=== PATIENT | female | born 1945 | race Caucasian/White ===

== ENCOUNTER 2024-11-06 14:09 | Outpatient (AMB) | payer OTHER, SELFPAY ==
--- OUTSIDE RECORDS SUMMARY | 2017-05-31 20:00 | XMS_ITS | Continuity of Care Document ---
Author Organization [facility] Address [address] [place] [address] Phone Care Team Providers Care Procurement Representative Name Role Phone Lluvia Fields MD Unavailable Unavailable Procedures Procedure Date Void Encounter [facility] Compl 8 Advance Directives Directive Yes / No Effective Date File Name No Information Encounters Encounter Description Practice Location Reason(s) For Visit Diagnoses Date Provider Providers Copied on Encounter [facility], [address], [place], [place], [id number], tel:[phone] [facility] No Information 8 Donnie Teixeira. [address], [place], [place], [id number] , [place]. tel:[phone] Referring Provider: Lluvia Reynoso, [address], [place], [address] . tel:[phone] [facility], [address], [place], [place], [id number], tel:[phone] [facility] No Information 8 Donnie Teixeira. [address], [place], [place], [id number] , [place]. [phone] Referring Provider: Kieran Laguerre. Family History Family Member Type Diagnosis Age At Onset No Information Payers Payer name Insurance type Covered constitution party ID Authoriza tion(s) Medicare [facility] [employer] [id number] Social History Type Description Quantity Date [...]
--- NOTE | 2024-11-06 14:38 | MHC.OFFVIS ---
Intake Visit Reasons: ENP-Dizziness and giddiness Allergies povidone-iodine (From Betadine) Allergy (Unknown, Verified 10/30/24 14:01) Unknown prazosin Allergy (Unknown, Verified 10/30/24 14:01) Dizziness Sulfa (Sulfonamide Antibiotics) Allergy (Unknown, Verified 10/30/24 14:01) Unknown HPI Comments Details: The patient is a 79-year-old female presenting with difficulties in speech and concerns of a cerebrovascular event. Initially noted in April, she experienced symptoms mimicking but distinct from vertigo, characterized by a unique descending and ascending sensation of the environment around her and accompanied by significant speech disruption. This led to concern for a potential cerebrovascular incident, especially following MRI and carotid ultrasound findings revealing a blockage and possible stroke indications. Her symptoms have persisted primarily as episodic speech disturbances, where she struggles to find words and experiences pauses in her communication. Despite previous vertiginous feelings not recurring, the patient expresses ongoing concern over her cognitive processing speed and fluency. Evaluations in August led to hospitalization after imaging suggested changes indicative of an acute event. Differential diagnosis considers degenerative brain changes or prior cerebrovascular injury, necessitating further neurological oversight. [facility] Medical History (Updated 11/06/24 @ 15:21 by Washington Lema MD) Giddiness Dizziness Family History (Updated 10/30/24 @ 14:26 by Lawrence Marti CMA) Mother Alzheimer disease Father Rheumatic fever Review of Systems Const Details: - Neurological: Reports episodes of word-finding difficulty and cognitive slowing. Denies recurrent vertigo. - Cardiovascular: Denies chest pain or palpitations. - Psychiatric: Reports anxiety during episodes of speech disturbance. Assessment & Plan Assessment & Plan (1) Benign positional vertigo: Code(s): H81.10 - Benign paroxysmal vertigo, unspecified ear Category: Medical Qualifiers: Laterality: unspecified laterality Qualified Code(s): H81.10 - Benign paroxysmal vertigo, unspecified ear (2) Aphasia: Code(s): R47.01 - Aphasia Category: Medical Plan Impression recommendations: 79 years old woman with subacute onset of difficulty speaking with underlying or previous history of vertigo. Difficulty speaking probably not related to her vertigo and was probably cause by a new process and brain, degenerative or vascular. Unfortunately her brain MRI was not here. I had a dionisio conversation with her and her daughter stating that I needed to review her brain MRI to figure out exact cause of her problem. We made another appointment and they would bring the MRI CD for review. Differential diagnosis was brought but mostly I was concerned about a degenerative or vascular process. Coding Level of Care Code New Pt Level 4 (00038) Diagnoses Benign paroxysmal positional vertigo, unspecified laterality H81.10 Laterality: unspecified laterality Aphasia R47.01
--- OUTSIDE RECORDS SUMMARY | 2024-11-06 16:34 | XMS_ITS | Encounter Summary ---
Author Organization [facility] Address [address] [place] [address] Phone Care Team Providers Care Doughnut Maker Name Role Phone Zev Suarez Primary Care Provider + [phone] Reason for Referral * - New Request Specialty Diagnoses / Procedures Referred By Contac t Referred To Contact Radiology Diagnoses Dizziness and giddiness Procedures US Carotid Duplex Complete (Bilateral) Zev Suarez PA [address] [place] [address] Phone: tel: fax: mailto:[email or web address] Referral ID Status Reason Start Date Expiration Date V isits Requested Visits Authorized [id number] New Request 08/29/2024 1 1 Encounter Details Date Type Department Care Team (Latest Contact Info) Description 08/29/2024 Transcribe Orders Virtual Department [address] [place] [address] Zev Suarez PA [address] [place] [address] [email or web address] Dizziness and giddiness (Primary Dx) Social History Tobacco Use Types Packs/Day Years Used Date Smoking Tobacco: Former Cigarettes Q uit: 1970 Smokeless Tobacco: Never Alcohol Use Standard Drinks/Week Comments Yes 0 (1 standard drink = 0.6 oz pure alcohol) 2 drinks per years on [facility] Education Answer Date Recorded Are you interested in more education? Not on aylin e 07/01/2022 Are you concerned about learning? Not on file 07/01/2022 No 07/01/2022 No 07/01/2022 Digital Access Answer Date Recorded No 07/30/2022 No 07/30/2022 No 07/30/2022 Reliable internet access at home? Not on file 07/30/2022 Device with a working camera? Not on file Intimate Partner Violence Answer Date R ecorded Are you denied basic needs s uch as food, clothing, or medical care? No 04/21/2022 In the past 12 months have y ou been in a relationship with a person who hurts, threatens, or tries to control you? No 04/21/2022 Are you denied basic needs s uch as food, clothing, or medical care? No 04/21/2022 In the past 12 months have y ou been in a relationship with a person who hurts, threatens, or tries to control you? No 04/21/2022 Comments Unknown Sex and Gender Information Value Date Recorded Sex Assigned at Not on file Legal Sex Female 10:37 PM EDT Gender Identity Not on file Sexual Orientation Not on file documented as of this encounter Plan of Treatment Scheduled Orders Name Type Priority Associated Diagnoses Orde r Schedule US Carotid Duplex Complete (Bilateral) Vascular Routine Dizziness and giddiness Expected: 08/29/2024, Expires: 08/29/2025 documented as of this encounter Visit Diagnoses Diagnosis Dizziness and giddiness- Primary documented in this encounter Care Teams Doughnut Maker Relationship Specialty Start Date End Date Zev Suarez PA [address] [place] [phone] [email or web address] PCP - General Physician School Business Manager 04/08/22 documented as of this encounter Additional Source Comments The information contained in this document represents components of the legal health record. It is not the complete legal health record.[facility]
--- OUTSIDE RECORDS SUMMARY | 2024-11-06 16:34 | XMS_ITS | Clinical Summary ---
Author Organization [facility] Address [address] [place] [address] Phone Care Team Providers Care Supervising Chef Name Role Phone Zev Suarez Primary Care Provider [phone] Allergies Active Allergy Reactions Criticality Noted Date Comments Povidone-Iodine 04/14/2022 Meperidine 04/14/2022 Medications gabapentin (NEURONTIN) 100 MG capsule Take 100 mg by mouth 2 (two) times a day. Active docusate (COLACE) 100 mg tablet Take 100 mg by mouth daily as needed for constipatio n. Active sertraline (ZOLOFT) 25 MG tablet Take 25 mg by mouth daily. Active diphenoxylate-at ropine (LOMOTIL) 2.5-0.025 mg per tablet Take 1 tablet by mouth 4 (four) times a day as needed for diarrhea. Active Encounters Date Type Department Care Team Description 08/29/2024 Transcribe Orders Virtual Department [address] [place] [address] Zev Suarez PA Dizziness and giddiness (Primary Dx) from Last 3 Months Social History Tobacco Use Types Packs/Day Years Used Date Smoking Tobacco: Former Cigarettes Q uit: 1970 Smokeless Tobacco: Never Tobacco Cessation:Counseling Given: Not Answered Alcohol Use Standard Drinks/Week Comments Yes 0 (1 standard drink = 0.6 oz pure alcohol) 2 drinks per years on [facility] Education Answer Date Recorded Are you interested [...] on file Sexual Orientation Not on file Last Filed Vital Signs Vital Sign Reading Time Taken Comments Blood Pressure 133/71 04/21/2022 3:30 PM EST Pulse 66 04/21/2022 3:30 PM EST Temperature 35.9 C (96.6 F) 04/21/2022 1:35 PM EST Respiratory Rate 12 04/21/2022 3:30 PM EST Oxygen Saturation 96% 04/21/2022 3:30 PM EST Inhaled Oxygen Concentration - - Weight 58.1 kg (128 lb) 04/14/2022 11:31 AM EST Height 167.6 cm (5' 6 ) 04/14/2022 11:31 AM EST Body Mass Index 20.66 04/14/2022 11:31 AM EST Plan of Treatment Health Maintenance Due Date Last Done Comments LIPID PANEL 1946 DEPRESSION SCREENING 1958 SMOKING Hx and SMOKELESS TOBACCO SCREENING 07/17/1959 HEPATITIS C SCREENING 1964 ZOSTER VACCINES (1 of 2) 1996 OSTEOPOROSIS SCREENING INITIAL (ONE-TIME) 07/17/2011 RSV VACCINE (1 - 1-dose 75+ series) 2021 INFLUENZA VACCINE (#1) 2024 2, 03/01/2021, 01/02/2020, Additional history exists COVID-19 VACCINE ( season) 2024 11/12/2021, 12/16/2020, 06/12/2020, Additional history exists Adult Td,Tdap Booster 10/14/2031 10/13/2021, 011 PNEUMOCOCCAL VACCINES (50+ years) Completed 03/20/2017, 03/11/2016 HEPATITIS A VACCINES Aged Out No long er eligible based on patient's age to complete this topic HIB VACCINES Aged Out No longer eligi ble based on patient's age to complete this topic MENINGOCOCCAL VACCINES (ACWY) Aged Out No longer eligible based on patient's age to complete this topic MENINGOCOCCAL VACCINES (B) Aged Out N o longer eligible based on patient's age to complete this topic Medical Devices Not on file Insurance MEDICARE REPLACEMENT MEDICARE REPLACEMENT MEDICARE REPLACEMENT Care Teams Supervising Chef Relationship Specialty Start Date End Date Zev Suarez PA [address] [place] [phone] [email or web address] PCP - General Physician Car Varnisher 04/08/22 Additional Source Comments The information contained in this document represents components of the legal health record. It is not the complete legal health record.[facility]
--- OUTSIDE RECORDS SUMMARY | 2024-11-06 16:34 | XMS_ITS | Encounter Summary ---
Author Organization [facility] Address [address] [place] [address] Phone Care Team Providers Care Stripper And Taper Name Role Phone Zev Suraez Primary Care Provider + [phone] Encounter Details Date Type Department Care Team (Late Contact Info) Description 04/21/2022 Procedure Pass OR Admitting Dept - Virtual Department [address] [place] [address] Social History Tobacco Use Types Packs/Day Years Used Date Smoking Tobacco: Former Cigarettes Q uit: 1970 Smokeless Tobacco: Never Alcohol Use Standard Drinks/Week Comments Yes 0 (1 standard drink = 0.6 oz pure alcohol) 2 drinks per years on [facility] Intimate Partner Violence Answer Date R ecorded Are you denied basic needs s uch as food, clothing, or medical care? No 04/21/2022 In the past 12 months have y ou been in a relationship with a person who hurts, threatens, or tries to control you? No 04/21/2022 Are you denied basic needs s [facility] as food, clothing, or medical care? No [...] as of this encounter Plan of Treatment Not on file documented as of this encounter Visit Diagnoses Not on filedocumented in this encounter Care Teams Stripper And Taper Relationship Specialty Start Date End Date Zev Suarez PA [address] [place] [phone] [email or web address] PCP - General Physician Web Graphic Designer 04/08/22 documented as of this encounter Additional Source Comments The information contained in this document represents components of the legal health record. It is not the complete legal health record.[facility]
== END 2024-11-06 15:02 | disposition home or self-care (01) ==
LOC: HO.HSM 14:10
PROVIDERS: PCP Physician Assistant Medical; Visit Provider Psychiatry & Neurology Neurology
DX: H81.10 Benign paroxysmal vertigo, unspecified ear (principal); R47.01 Aphasia
CPT/HCPCS: 99204

== ENCOUNTER 2024-11-19 14:18 | Outpatient (AMB) | payer OTHER, SELFPAY ==
--- OUTSIDE RECORDS SUMMARY | 2017-05-31 20:00 | XMS_ITS | Continuity of Care Document ---
Author Organization [facility] Address [address] [place] [address] Phone Care Team Providers Care Mutual Funds Agent Name Role Phone Lluvia Fields MD Unavailable Unavailable Procedures Procedure Date Void Encounter [facility] Compl 8 Advance Directives Directive Yes / No Effective Date File Name No Information Encounters Encounter Description Practice Location Reason(s) For Visit Diagnoses Date Provider Providers Copied on Encounter [facility], [address], [place], [place], [id number], tel:[phone] [facility] No Information 8 Donnie Teixeira. [address], [place], [place], [id number] , [place]. tel:[phone] Referring Provider: Lluvia Reynoso, [address], [place], [address] . tel:[phone] [facility], [address], [place], [place], [id number], tel:[phone] [facility] No Information 8 Donnie Teixeira. [address], [place], [place], [id number] , [place]. tel:[phone] Referring Provider: Kieran Laguerre. Family History Family Member Type Diagnosis Age At Onset No Information Payers Payer name Insurance type Covered libertarian ID Authoriza tion(s) Medicare [facility] [employer] [id number] Social History Type Description Quantity Date Captured Comments Sex Female Smoking Status No Information Chief Complaint And Reason For Visit No Information Reason For Referral Reason For Referral No Information History Of Present Illness Encounter Date Complaint History Of Prese nt Illness No Information Functional Status Date Functional Assessmen t No Information Instructions Date Instruction Additional Infor mation No Information Assessments Type Assessment Date No Information Patient Care Teams Name Effective Dates (start - stop) Status Members No Information
--- NOTE | 2024-11-19 14:38 | A.OFFVIS_ITS ---
Intake Visit Reasons: Disc review Allergies povidone-iodine (From Betadine) Allergy (Unknown, Verified 10/30/24 14:01) Unknown prazosin Allergy (Unknown, Verified 10/30/24 14:01) Dizziness Sulfa (Sulfonamide Antibiotics) Allergy (Unknown, Verified 10/30/24 14:01) Unknown HPI Comments Details: 79 years old woman who developed vertigo type of symptoms and then difficulty speaking in April of 2024. She had an MRI of brain done that apparently did not reveal any obvious abnormality. She was advised to bring her MRI CD for review to rule out any degenerative or central process that could explain her difficulty speaking that was suggestive more of aphasia than dysarthria. She is presenting with speech difficulties and memory problems. She reports difficulty in maintaining fluid conversations and recalling words, which is significantly affecting social interactions. These cognitive changes have been progressing over time. An MRI revealed numerous white matter changes indicative of microvascular ischemic disease, aligning with her diagnosis of vascular dementia. Her chronic medical conditions include Crohn's disease, which can be associated with small vessel disease, and hypertension, with noted concerns about blood pressure spikes. The patient is currently taking baby aspirin and a statin, and monitoring her blood pressure due to past fluctuations. She has expressed concerns about the progression of her cognitive symptoms and is seeking medical guidance on management strategies. [facility] Medical History (Updated 11/19/24 @ 14:58 by [place] Lema MD) Giddiness Dizziness Family History (Updated 10/30/24 @ 14:26 by Lawrence Marti CMA) Mother Alzheimer disease Father Rheumatic fever Review of Systems Const Details: - Neurological: Reports difficulty with speech fluency and forgetfulness. - Cardiovascular: Denies specific symptoms but reports occasional high blood pressure readings. - Gastrointestinal: Mention of Crohn's disease. Assessment & Plan Assessment & Plan (1) Aphasia: Code(s): R47.01 - Aphasia Category: Medical (2) Cerebral microvascular disease: Code(s): I67.89 - Other cerebrovascular disease Category: Medical (3) Vascular dementia: Code(s): F01.50 - Vascular dementia, unspecified severity, without behavioral disturbance, psychotic disturbance, mood disturbance, and anxiety Category: Medical Qualifiers: Dementia severity: mild Dementia behavioral or psychological symptom: without behavioral, psychotic, or mood disturbance or anxiety Qualified Code(s): F01.A0 - Vascular dementia, mild, without behavioral disturbance, psychotic disturbance, mood disturbance, and anxiety Plan Impression: 79 years old woman with probably hypertension and Crohn's disease related small vessel disease of brain resulting in moderate ischemic lesions. With that, she has symptoms of dizziness/vertigo in April, and mild mostly motor aphasia. She was educated about this condition and base to manage it. Recommendations: Blood pressure control Baby aspirin daily Statin therapy Try memantine 5 mg twice a day I discussed with the patient and her caregiver about the findings from the MRI and its implications, focusing on the microvascular ischemic disease and vascular dementia diagnoses. I explained the rationale behind continuing baby aspirin and statin therapy to mitigate further cerebrovascular risks. The use of memantine for cognitive symptoms was discussed, highlighting the potential benefits and the short trial period to assess efficacy. I emphasized the association between Crohn's disease and small vessel disease, ensuring communication with her machine heel builder regarding her overall management strategy. Blood pressure monitoring was stressed, with coordination with her primary care physician seen as pivotal in managing her hypertension effectively. Orders: Orders Erythrocyte Sedimentation Rate Today I67.89 - Other cerebrovascular disease Lyme IgG/IgM w/reflex to WB Today I67.89 - Other cerebrovascular disease EDIE Reflex Titer and Pattern Today I67.89 - Other cerebrovascular disease Immunofixation Pnl, Serum Today I67.89 - Other cerebrovascular disease Medications: New memantine (Namenda) 5 mg PO BID 180 tabs 0RF Coding Level of Care Code Est Pt Level 5 (68222) Diagnoses Aphasia R47.01 Cerebral microvascular disease I67.89 Mild vascular dementia without behavioral disturbance, psychotic disturbance, mood disturbance, or anxiety F01.A0 Dementia severity: mild Dementia behavioral or psychological symptom: without behavioral, psychotic, or mood disturbance or anxiety
--- OUTSIDE RECORDS SUMMARY | 2024-11-19 18:06 | XMS_ITS | Clinical Summary ---
Author Organization [facility] Address [address] [address] Phone Care Team Providers Care Time Signal Wirer Name Role Phone Zev Suarez Primary Care Provider [phone] Allergies Active Allergy Reactions Criticality Noted Date [...] Description 08/29/2024 Transcribe Orders Virtual Department [address] [place] [address] Zev Suarez PA Dizziness and giddiness (Primary Dx) from Last 3 Months Social History Tobacco Use Types Packs/Day Years Used Date Smoking Tobacco: Former Cigarettes Q uit: 1970 Smokeless Tobacco: Never Tobacco Cessation:Counseling Given: Not Answered Alcohol Use Standard Drinks/Week Comments Yes 0 (1 standard drink = 0.6 oz pure alcohol) 2 drinks per years on [facility] Education Answer Date Recorded Are you interested [...] REPLACEMENT MEDICARE REPLACEMENT MEDICARE REPLACEMENT Care Teams Time Signal Wirer Relationship Specialty Start Date End Date Zev Suarez PA [address] [place] [phone] [email or web address] PCP - General Physician Lump Room Supervisor 04/08/22 Additional Source Comments The information contained in this document represents components of the legal health record. It is not the complete legal health record.[facility]
--- OUTSIDE RECORDS SUMMARY | 2024-11-19 18:06 | XMS_ITS | Encounter Summary ---
Author Organization [facility] Address [address] [place] [address] Phone Care Team Providers Care Mold Holder Name Role Phone Zev Suarez Primary Care Provider + [phone] Reason for Referral * - New Request Specialty Diagnoses / Procedures Referred By Contac t Referred To Contact Radiology Diagnoses Dizziness and giddiness Procedures US Carotid Duplex Complete (Bilateral) Zev Suarez PA [address] [place] [address] Phone: tel: fax: mailto:[email or web address] Referral ID Status Reason Start Date Expiration Date V isits Requested Visits Authorized [id number] New Request 08/29/2024 1 1 Encounter Details Date Type Department Care Team (Latest Contact Info) Description 08/29/2024 Transcribe Orders Virtual Department [address] [place] [address] Zev Suarez PA [address] [place] [phone] [email or web address] Dizziness and giddiness (Primary Dx) Social History Tobacco Use Types Packs/Day Years Used Date Smoking Tobacco: Former Cigarettes Q uit: 1970 Smokeless Tobacco: Never Alcohol Use Standard Drinks/Week Comments Yes 0 (1 standard drink = 0.6 oz pure alcohol) 2 drinks per years on [facility] Education Answer Date Recorded Are you interested [...] Primary documented in this encounter Care Teams Mold Holder Relationship Specialty Start Date End Date Zev Suarez PA [address] [place] [phone] [email or web address] PCP - General Physician Defense Travel Administrator 04/08/22 documented as of this encounter Additional Source Comments The information contained in this document represents components of the legal health record. It is not the complete legal health record.[facility]
--- OUTSIDE RECORDS SUMMARY | 2024-11-19 18:06 | XMS_ITS | Encounter Summary ---
Author Organization [facility] Address [address] [place] [address] Phone Care Team Providers Care Pit Shoveler Name Role Phone Zev Suarez Primary Care Provider + [phone] Encounter Details Date Type Department Care Team (Late Contact Info) Description 04/21/2022 Procedure Pass OR Admitting Dept - Virtual Department [address] [place] [address] Social History Tobacco Use Types Packs/Day Years Used Date Smoking Tobacco: Former Cigarettes Q uit: 1970 Smokeless Tobacco: Never Alcohol Use Standard Drinks/Week Comments Yes 0 (1 standard drink = 0.6 oz pure alcohol) [address] [facility] Intimate Partner Violence Answer Date R ecorded Are you denied basic needs s uch as food, clothing, or medical care? No 04/21/2022 In the past 12 months have y ou been in a relationship with a person who hurts, threatens, or tries to control you? No 04/21/2022 Are you denied basic needs s [facility] as food, clothing, or medical care? No [...] on filedocumented in this encounter Care Teams Pit Shoveler Relationship Specialty Start Date End Date Zev Suarez PA [address] [place] [phone] [email or web address] PCP - General Physician Cut Off Sawyer 04/08/22 documented as of this encounter Additional Source Comments The information contained in this document represents components of the legal health record. It is not the complete legal health record.[facility]
== END 2024-11-19 15:03 | disposition home or self-care (01) ==
PROVIDERS: PCP Physician Assistant Medical; Visit Provider Psychiatry & Neurology Neurology
DX: R47.01 Aphasia (principal); I67.89 Other cerebrovascular disease; F01.A0 Vascular dementia, mild, without behavioral disturbance, psychotic disturbance, mood disturbance, and anxiety
CPT/HCPCS: 99214

== ENCOUNTER 2025-02-10 09:34 | Outpatient (AMB) | payer OTHER, SELFPAY ==
--- NOTE | 2025-02-10 09:58 | MHC.OFFVIS ---
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 With that, she has symptoms of dizziness/vertigo in April, and mild mostly motor aphasia. She is presenting for follow-up of her cognitive and balance issues. She reports experiencing anomia, becoming upset when she is unable to find the word she wants to say. Her often assists her with word retrieval. The patient describes her balance as horrible and expresses a fear of falling, [place] To address this, she has started attending balance and strength classes at the [facility] but notes she is unable to stand on one leg. She has stopped driving. Relevant medical history includes a few strokes identified on a prior brain MRI. She has a family history of Alzheimer's disease, as her mother was affected, and this is a source of concern for her regarding her own prognosis. The patient mentions she has hearing aids but forgot them for today's appointment. [facility] Medical History (Updated 02/10/25 @ 10:08 by Washington Lema MD) Giddiness Dizziness Family History (Updated 10/30/24 @ 14:26 by Lawrence Marti CMA) Mother Alzheimer disease Father Rheumatic fever Review of Systems Narrative - Neurological: Reports anomia and poor balance. - Psychiatric: Reports feeling upset due to word-finding difficulties and expresses concern about her prognosis. - HEENT: Reports hearing impairment. Physical Exam Neuro Other: Mental Status: Alert and oriented to person, place, and time. Normal attention. Normal spontaneous speech, fluency, and comprehension. Mood is depressed adn anxiousy Cranial Nerves: CN II: Visual villalobos full to confrontation, visual acuity intact. CN III, IV, : Pupils equal, round, reactive to light and accommodation. Extraocular movements are normal. CN V: Facial sensation is normal. CN VII: Facial movements symmetrical. CN VIII: Hearing intact to bedside conversation is normal. CN IX, X: Palate elevates symmetrically. CN XI: Shoulder shrug and head turn symmetrical. CN XII: Tongue midline without atrophy or fasciculations. Slow and cautious gait Extrapyramidal: Full facial expressions and blinking. No rigidity. Movements are appropriate with no tremor or abnormality. Speech: Normal; no dysarthria or tremor. Assessment & Plan Assessment & Plan (1) Cerebral microvascular disease: Comment: MRI brain [facility] at [facility] in September 2024: Mod MVD Code(s): I67.89 - Other cerebrovascular disease Category: Medical (2) Vascular dementia: Code(s): F01.50 - Vascular dementia, unspecified severity, without behavioral disturbance, psychotic disturbance, mood disturbance, and anxiety Category: Medical Qualifiers: Dementia severity: mild Dementia behavioral or psychological symptom: without behavioral, psychotic, or mood disturbance or anxiety Qualified Code(s): F01.A0 - Vascular dementia, mild, without behavioral disturbance, psychotic disturbance, mood disturbance, and anxiety Plan Impression: a: Mild to mod vascular dementia b: Episodes of difficulty speaking that might be related to dementia Rec: a: Memantine 10mg bid b: EEG c: Sertraline 25mg one in am d: Mirtazapine 15mg one at night is what she is already taking I explained to the patient that her brain MRI revealed a few strokes which are the cause of her symptoms, and that the imaging did not show an Alzheimer's-type picture. I informed her the diagnosis is vascular dementia, which is a different and more manageable condition. We discussed medication changes, including increasing the memantine dose to 10 mg twice daily and starting sertraline 25 mg daily for stress. I clarified that her mirtazapine for sleep is a separate medication and can be taken at the same time as the evening memantine dose. I am ordering an EEG to check the electrical activity of her brain and explained it is an in-office procedure that does not involve an enclosed tube. I encouraged her to continue with the [employer] classes for balance and to disregard online advertisements for medical cures, explaining they are hoaxes. I provided reassurance and advised her to focus on living in the present to reduce stress. Orders: Orders EEG Routine Today G40.909 - Epilepsy, unspecified, not intractable, without status epilepticus Medications: New memantine (Namenda) 10 mg PO BID 180 tabs 1RF Discontinued memantine (Namenda) Discontinued Reason: Doctor's Order 5 mg PO BID 180 tabs 0RF Coding Level of Care Code Est Pt Level 4 (18728) Diagnoses Cerebral microvascular disease I67.89 Mild vascular dementia without behavioral disturbance, psychotic disturbance, mood disturbance, or anxiety F01.A0 Dementia severity: mild Dementia behavioral or psychological symptom: without behavioral, psychotic, or mood disturbance or anxiety
== END 2025-02-10 10:19 | disposition home or self-care (01) ==
LOC: HO.HSM 09:34
PROVIDERS: PCP Physician Assistant Medical; Visit Provider Psychiatry & Neurology Neurology
DX: I67.89 Other cerebrovascular disease (principal); F01.A0 Vascular dementia, mild, without behavioral disturbance, psychotic disturbance, mood disturbance, and anxiety
CPT/HCPCS: 99214